=== PATIENT | male | born 1940 | race Caucasian/White ===

== ENCOUNTER 2019-03-27 23:28 | Emergency (ER) | payer BC, MEDICARE, OTHER ==
[~2019-03-27] VITALS: Ht 182.9 cm; Wt 78.0 kg
--- NOTE | 2019-03-27 23:45 | NUR ---
PT BIBS. C/O "PROBABLY HAD SOME BAD FOOD A WHILE AGO. +NAUSEA +VOMIT" -SOB AOX4. VSS. NAD NOTED. RESP EVEN AND UNLABORED. PT ON MONITOR IN BED 1. WILL CONTINUE TO MONITOR.
[2019-03-28] MEDS ORDERED: ONDANSETRON HCL/PF 4 MG/2 ML VIAL IVP ONE
[2019-03-28] MEDS ORDERED: IV NS 0.9% 1,000 ML BAG IV ONE
[2019-03-28] MEDS ORDERED: KETOROLAC TROMETHAMINE INJ 30 MG/ML VIAL IV ONE
--- NOTE | 2019-03-28 00:07 | NUR ---
BLOOD DRAWN AND GIVEN TO PHLEB
[2019-03-28] MEDS ORDERED: KETOROLAC TROMETHAMINE 15 MG/ML VIAL ONE (00:09)
[2019-03-28] MEDS ORDERED: ONDANSETRON HCL/PF 4 MG/2 ML VIAL ONE (00:09)
[2019-03-28 00:11] LABS: BASOPHILS # (AUTO) 0.1 /CMM (0.0-0.2); BASOPHILS % (AUTO) 0.6 % (0.0-2.0); EOSINOPHILS % (AUTO) 0.3 % (0.0-6.0); HEMATOCRIT 42 % (39-51); HEMOGLOBIN 14.6 g/dL (13.5-17.5); LYMPHOCYTES # (AUTO) 1.1 /CMM (0.8-4.8); LYMPHOCYTES % (AUTO) 11.3 % (20.0-44.0); MEAN CORPUSCULAR HGB CONC 35 g/dl (31.0-36.0); MEAN CORPUSCULAR VOLUME 93 fL (80-96); MONOCYTES # (AUTO) 0.5 /CMM (0.1-1.30); NEUTROPHILS # (AUTO) 8.4 /CMM (1.8-8.9); NEUTROPHILS % (AUTO) 82.8 % (43.0-81.0); PLATELET COUNT (AUTO) 245 /CMM (150-450); RED BLOOD CELL COUNT(AUTO) 4.51 MIL/uL (4.5-6.0); WHITE BLOOD COUNT (AUTO) 10.2 K/uL (4.3-11.0)
[2019-03-28 00:33] LABS: CARBON DIOXIDE 26 mmol/L (21-32); CHLORIDE 100 mmol/L (98-107); CREATININE 1.4 mg/dL (0.6-1.3); GLUCOSE 173 mg/dL (74-106); POTASSIUM 3.5 mmol/L (3.5-5.1); SODIUM SERUM 139 mmol/L (136-145); UREA NITROGEN, BLOOD 17 mg/dL (7-18)
[2019-03-28 00:40] LABS: ALANINE AMINOTRANSFERASE 32 U/L (12-78); ALBUMIN 4.2 g/dL (3.4-5.0); ALKALINE PHOSPHATASE 82 U/L (46-116); ASPARTATE AMINOTRANSFERASE 22 U/L (15-37); BILIRUBIN,DIRECT 0.4 mg/dL (0.0-0.2); BILIRUBIN,TOTAL 2.3 mg/dL (0.2-1.0); LIPASE 78 U/L (73-393); TOTAL PROTEIN, SERUM 7.6 g/dL (6.4-8.2)
--- NOTE | 2019-03-28 02:01 | NUR ---
Patient is resting comfortably in bed. Easily aroused. VSS.
[2019-03-28 02:26] VITALS: BP 122/67
--- NOTE | 2019-03-28 02:26 | NUR ---
IV removed. Catheter intact and site benign. Pressure and 4x4 applied to site. No bleeding noted.Patient discharged to home in stable condition. Written and verbal after care instructions given. Patient verbalizes understanding of instruction. pt ambulatory with a steady gait.
== END 2019-03-28 02:27 | disposition home or self-care (01) ==
LOC: ER 23:30
DX: A08.4 Viral intestinal infection, unspecified (principal); R11.2 Nausea with vomiting, unspecified; I10 Essential (primary) hypertension; I48.91 Unspecified atrial fibrillation; Z88.8 Allergy status to other drugs, medicaments and biological substances; Z85.038 Personal history of other malignant neoplasm of large intestine
CPT/HCPCS: 36415; 80048; 80076; 83690; 85025; 96361; 96374; 96375; 99283; J1885; J2405; J7030

== ENCOUNTER 2020-05-31 18:19 | Emergency (ER) | payer BC, OTHER ==
[~2020-05-31] VITALS: Ht 182.9 cm; Wt 86.2 kg
--- NOTE | 2020-05-31 18:29 | NUR ---
BIBSELF C/O DIFFUSE ABD PAIN +VOMITING SINCE 12NOON TODAY -DIARRHEA< TO ER BED 11, HOOKED TO MONITOR, CHANGED TO HOSP GOWN, WARM BLAKET PROVIDED, PATIENT AAO x 4. NAD NOTED. AWAITING MD RAINES
--- NOTE | 2020-05-31 18:40 | NUR ---
DR OCHOA AT BEDSIDE
[2020-05-31 19:06] LABS: BASOPHILS # (AUTO) 0.1 /CMM (0.0-0.2); BASOPHILS % (AUTO) 0.6 % (0.0-2.0); EOSINOPHILS % (AUTO) 0.4 % (0.0-6.0); HEMATOCRIT 45 % (39-51); HEMOGLOBIN 15.2 g/dL (13.5-17.5); LYMPHOCYTES # (AUTO) 1.5 /CMM (0.8-4.8); LYMPHOCYTES % (AUTO) 9.3 % (20.0-44.0); MEAN CORPUSCULAR HGB CONC 34 g/dl (31.0-36.0); MEAN CORPUSCULAR VOLUME 94 fL (80-96); MONOCYTES # (AUTO) 0.3 /CMM (0.1-1.30); MONOCYTES % (AUTO) 1.9 % (2.0-12.0); NEUTROPHILS # (AUTO) 14.3 /CMM (1.8-8.9); NEUTROPHILS % (AUTO) 87.8 % (43.0-81.0); PLATELET COUNT (AUTO) 269 /CMM (150-450); RED BLOOD CELL COUNT(AUTO) 4.74 MIL/uL (4.5-6.0); WHITE BLOOD COUNT (AUTO) 16.3 K/uL (4.3-11.0)
--- NOTE | 2020-05-31 19:10 | NUR ---
REPORT GIVEN TO ELIZABETH JONES FOR [facility]IM[facility]
[2020-05-31] MEDS ORDERED: ONDANSETRON HCL/PF 4 MG/2 ML VIAL ONE (19:15)
[2020-05-31 19:19] LABS: ALANINE AMINOTRANSFERASE 45 U/L (12-78); ALBUMIN 4.7 g/dL (3.4-5.0); ALKALINE PHOSPHATASE 103 U/L (46-116); ASPARTATE AMINOTRANSFERASE 31 U/L (15-37); BILIRUBIN,DIRECT 0.4 mg/dL (0.0-0.2); BILIRUBIN,TOTAL 1.7 mg/dL (0.2-1.0); CALCIUM, SERUM 10.1 mg/dL (8.5-10.1); CARBON DIOXIDE 25 mmol/L (21-32); CHLORIDE 97 mmol/L (98-107); CREATININE 1.4 mg/dL (0.6-1.3); GLUCOSE 157 mg/dL (74-106); POTASSIUM 3.6 mmol/L (3.5-5.1); SODIUM SERUM 136 mmol/L (136-145); TOTAL PROTEIN, SERUM 8.3 g/dL (6.4-8.2); UREA NITROGEN, BLOOD 22 mg/dL (7-18)
[2020-05-31] MEDS: ONDANSETRON HCL/PF 4 MG/2 ML VIAL IVP ONE (19:20)
--- NOTE | 2020-05-31 19:25 | NUR ---
TOOK OVER PT CARE. PT AAOX4, C/O ABD PAIN, STATING HE DOES NOT WANT ANY "MORPHINE." PT PLACED ON MONITOR AND PULSE OX. AWAITING ORDERS. PT MEDICATED W/ ZOFRAN.
[2020-05-31] MEDS ORDERED: IOHEXOL-300 100 ML VIAL IV ONE (19:33)
[2020-05-31 19:34] LABS: LIPASE 67 U/L (73-393)
[2020-05-31] MEDS ORDERED: IV NS 0.9% 250 ML IV ONE (19:34)
--- NOTE | 2020-05-31 19:39 | NUR ---
PT BROUGHT TO CT
[2020-05-31] MEDS: IV NS 0.9% 1,000 ML BAG IV ONE (20:50)
--- NOTE | 2020-05-31 22:25 | NUR ---
Patient discharged to home in stable condition. Written and verbal after care instructions given. Patient verbalizes understanding of instruction. Pt denies pain. Provided with ct results and blood work. Pt ambulated out of ED. VSS.
--- NOTE | 2020-05-31 22:25 | NUR ---
IV removed. Catheter intact and site benign. Pressure and 4x4 applied to site. No bleeding noted.
[2020-05-31 22:26] VITALS: BP 118/73
== END 2020-05-31 22:30 | disposition home or self-care (01) ==
LOC: ER 18:28
DX: R11.10 Vomiting, unspecified (principal); R10.13 Epigastric pain; I10 Essential (primary) hypertension; I48.91 Unspecified atrial fibrillation; Z85.038 Personal history of other malignant neoplasm of large intestine; Z88.8 Allergy status to other drugs, medicaments and biological substances
CPT/HCPCS: 36415; 74177; 80048; 80076; 83605 ×2; 83690; 85025; 85730; 87040 ×2; 93005; 96361; 96374; 99285; J2405; J7030; J7050; Q9967

== ENCOUNTER 2021-03-07 08:23 | Emergency (ER) | payer BC ==
[~2021-03-07] VITALS: Ht 182.9 cm; Wt 86.2 kg
--- NOTE | 2021-03-07 08:32 | NUR ---
TO ER BED 6, C/O CHILLS SINCE LAST NIGHT, AFEBRILE, AAOX3, BREATHING EVEN AND NON LABORED, CONNECTED TO MONITOR
--- NOTE | 2021-03-07 08:49 | NUR ---
SALINE LOCK ESTABLISHED, BLOOD DRAWN, AND SENT TO LAB
--- NOTE | 2021-03-07 08:55 | NUR ---
COVID SWAB DONE AND SENT TO LAB
--- NOTE | 2021-03-07 08:57 | NUR ---
[employer]IL[employer] AT BEDSIDE
[2021-03-07 09:01] LABS: BASOPHILS % (AUTO) 0.6 % (0.0-2.0); EOSINOPHILS % (AUTO) 1.6 % (0.0-6.0); HEMATOCRIT 41 % (39-51); HEMOGLOBIN 14.1 g/dL (13.5-17.5); MEAN CORPUSCULAR HGB CONC 35 g/dl (31.0-36.0); MEAN CORPUSCULAR VOLUME 94 fL (80-96); MONOCYTES # (AUTO) 0.3 K/uL (0.1-1.30); MONOCYTES % (AUTO) 5.7 % (2.0-12.0); NEUTROPHILS # (AUTO) 3.5 K/uL (1.8-8.9); NEUTROPHILS % (AUTO) 58.1 % (43.0-81.0); PLATELET COUNT (AUTO) 225 K/uL (150-450); RED BLOOD CELL COUNT(AUTO) 4.32 MIL/uL (4.5-6.0)
--- NOTE | 2021-03-07 09:05 | NUR ---
URINE COLLECTED AND SENT TO LAB
[2021-03-07 09:24] LABS: CALCIUM, SERUM 9.3 mg/dL (8.5-10.1); CREATININE 1.2 mg/dL (0.6-1.3); POTASSIUM 3.8 mmol/L (3.5-5.1)
[2021-03-07 09:26] LABS: ALBUMIN 4.2 g/dL (3.4-5.0); BILIRUBIN,DIRECT 0.3 mg/dL (0.0-0.2); BILIRUBIN,TOTAL 1.4 mg/dL (0.2-1.0); TOTAL PROTEIN, SERUM 7.8 g/dL (6.4-8.2)
[2021-03-07 10:26] LABS: BILIRUBIN,URINE NEGATIVE (NEGATIVE); COLOR,URINE YELLOW (YELLOW); LEUKOCYTE ESTERASE ,URINE NEGATIVE (NEGATIVE); NITRITE, URINE NEGATIVE (NEGATIVE); PROTEIN,URINE NEGATIVE (NEGATIVE); UGLUCOSE NEGATIVE (NEGATIVE)
[2021-03-07] MEDS ORDERED: ACET-73 PO (10:35)
[2021-03-07 10:58] LABS: BACTERIA,URINE None seen /HPF (None Seen); SQUAMOUS EPITHELIAL CELL,UR None Seen /HPF (None Seen); WBC,URINE NONE SEEN /HPF (0-3)
--- NOTE | 2021-03-07 11:31 | NUR ---
IV removed. Catheter intact and site benign. Pressure and 4x4 applied to site. No bleeding noted.Patient discharged to home in stable condition. Written and verbal after care instructions given. Patient verbalizes understanding of instruction.
[2021-03-07 11:32] VITALS: BP 142/80
== END 2021-03-07 11:34 | disposition home or self-care (01) ==
LOC: ER 08:49
DX: R50.9 Fever, unspecified (principal); Z20.822 Contact with and (suspected) exposure to COVID-19; I48.20 Chronic atrial fibrillation, unspecified; Z85.038 Personal history of other malignant neoplasm of large intestine; I10 Essential (primary) hypertension
CPT/HCPCS: 36415; 71045; 80048; 80076; 81001; 83605; 84145; 84484; 85025; 85730; 87040 ×2; 87086; 87426; 93005; 99285; C9803

== ENCOUNTER 2021-10-29 20:45 | Emergency (ER) | payer BC ==
[~2021-10-29] VITALS: Ht 185.4 cm; Wt 79.8 kg
[~2021-10-29 20:45] MED LIST: ACET-73 PO
--- NOTE | 2021-10-29 20:55 | NUR ---
BIBS C/O HIGH BP SYSTOLIC 160 AT HOME, AT TRIAGE 169/69 C/O "BACK OF HEAD PRESSURE WITH PALPITATIONS X1DAY. PLACED COMFORTABLY IN BED. VITALS CHECKED. ATTACHED TO MONITOR
[2021-10-29 22:31] LABS: BASOPHILS % (AUTO) 0.4 % (0.0-2.0); EOSINOPHILS % (AUTO) 0.8 % (0.0-6.0); HEMATOCRIT 30 % (39-51); HEMOGLOBIN 10.1 g/dL (13.5-17.5); LYMPHOCYTES # (AUTO) 1.4 K/uL (0.8-4.8); LYMPHOCYTES % (AUTO) 23.3 % (20.0-44.0); MEAN CORPUSCULAR HGB CONC 34 g/dl (31.0-36.0); MEAN CORPUSCULAR VOLUME 91 fL (80-96); MONOCYTES # (AUTO) 0.5 K/uL (0.1-1.30); MONOCYTES % (AUTO) 8.1 % (2.0-12.0); NEUTROPHILS % (AUTO) 67.4 % (43.0-81.0); PLATELET COUNT (AUTO) 216 K/uL (150-450); RED BLOOD CELL COUNT(AUTO) 3.27 MIL/uL (4.5-6.0)
[2021-10-29 22:41] LABS: CALCIUM, SERUM 9.1 mg/dL (8.5-10.1); CARBON DIOXIDE 24 mmol/L (21-32); CHLORIDE 97 mmol/L (98-107); CREATININE 0.9 mg/dL (0.6-1.3); GLUCOSE 114 mg/dL (74-106); POTASSIUM 3.4 mmol/L (3.5-5.1); SODIUM SERUM 128 mmol/L (136-145); UREA NITROGEN, BLOOD 17 mg/dL (7-18)
[2021-10-30 01:43] VITALS: BP 124/71
--- NOTE | 2021-10-30 01:43 | NUR ---
Patient discharged to home in stable condition. Written and verbal after care instructions given. Patient verbalizes understanding of instruction.
== END 2021-10-30 01:44 | disposition home or self-care (01) ==
LOC: ER 20:48
DX: I10 Essential (primary) hypertension (principal); R51.9 Headache, unspecified; I48.91 Unspecified atrial fibrillation; Z88.8 Allergy status to other drugs, medicaments and biological substances
CPT/HCPCS: 36415; 80048-TC; 84484-TC; 85025-TC